=== PATIENT | female | born 1980 | race African-American/Black ===

== ENCOUNTER 2019-08-31 11:55 | Emergency (ER) | payer OTHER ==
[~2019-08-31] VITALS: Ht 165.1 cm; Wt 91.4 kg
[2019-08-31] MEDS ORDERED: METOCLOPRAMIDE INJ 10MG/2ML VIAL (J2765) IV ONE (12:30)
[2019-08-31] MEDS ORDERED: KETOROLAC 30 MG/ML VIAL (J1885) IV ONE (12:30)
[2019-08-31] MEDS ORDERED: NS 1,000 ML IV ONE (12:30)
[2019-08-31] MEDS ORDERED: KETO10TAB PO (13:50)
[2019-08-31 14:58] VITALS: BP 110/61
== END 2019-08-31 15:00 | disposition home or self-care (01) ==
LOC: M ED 11:55
DX: G43.909 Migraine, unspecified, not intractable, without status migrainosus (principal)
CPT/HCPCS: 96361; 96374; 96375; 99284; J1885; J2765

== ENCOUNTER 2020-04-06 21:26 | Emergency (ER) | payer OTHER ==
[~2020-04-06] VITALS: Ht 165.1 cm; Wt 75.0 kg
[2020-04-06 21:26] VITALS: BP 125/83
[~2020-04-06 21:26] MED LIST: KETO10TAB PO
== END 2020-04-06 23:15 | disposition home or self-care (01) ==
LOC: M ED 21:26
DX: J06.9 Acute upper respiratory infection, unspecified (principal); M54.9 Dorsalgia, unspecified; G47.00 Insomnia, unspecified; R51.9 Headache, unspecified
CPT/HCPCS: 99282; U0003

== ENCOUNTER → 2020-09-14 | Outpatient (CLI) | payer OTHER ==
[2020-09-14 14:55] LABS: PLATELET COUNT, AUTOMATED 186 10^3/uL (150-450)
[2020-09-14 15:10] LABS: INR 1.05; PROTHROMBIN TIME 13.9 SECONDS (12.5-14.3)
[2020-09-14 15:11] LABS: PARTIAL THROMBOPLASTIN TIME 29.8 SECONDS (24.2-38.5)
[2020-09-14 15:17] LABS: COLLAGEN EPINEPHRINE 128 SECONDS (74-162)
== END ==
LOC: M LAB 14:26
PROVIDERS: ATTEND Physical Medicine & Rehabilitation
DX: Z01.812 Encounter for preprocedural laboratory examination (principal)

== ENCOUNTER 2021-01-24 14:16 | Emergency (ER) | payer OTHER ==
[~2021-01-24] VITALS: Ht 162.6 cm; Wt 86.3 kg
[2021-01-24 18:16] VITALS: BP 121/63
== END 2021-01-24 18:18 | disposition home or self-care (01) ==
LOC: M ED 14:16
DX: R19.5 Other fecal abnormalities (principal); G43.909 Migraine, unspecified, not intractable, without status migrainosus; G47.00 Insomnia, unspecified

== ENCOUNTER 2021-02-14 02:39 | Emergency (ER) | payer OTHER ==
[~2021-02-14] VITALS: Ht 167.6 cm; Wt 80.9 kg
[2021-02-14 02:40] VITALS: BP 120/79
== END 2021-02-14 07:40 | disposition left against medical advice (07) ==
LOC: M ED 02:39
DX: Z53.21 Procedure and treatment not carried out due to patient leaving prior to being seen by health care provider (principal)